=== PATIENT | male | born 1995 | race Caucasian/White ===

== ENCOUNTER 2016-06-26 21:30 | Emergency (ER) | payer OTHER ==
[~2016-06-26] VITALS: Ht 185.4 cm; Wt 81.1 kg
[~2016-06-26 21:30] MED LIST: AMOX TR-K CLV1 EAC4; BACTRIM,SEPT1 TABLET PO; KEFLEX500 MG PO; MOTRIN800 MG PO; NOHOMEMEDS; PHENERGAN25 MG PR; PREDNISONE20 MG PO; PROMETHAZINE HC25 M1 PO; ULTRAM50 MG PO; VENTOLIN HFA18 GM IH; ZITHROMAX Z-PA250 MG PO
[2016-06-26 21:58] LABS: HEMATOCRIT 40.6 % (38.0-50.0); MCH 31.5 PG (29.0-34.0); MCHC 34.7 G/DL (30.0-36.0); MCV 90.6 FL (86-99); MEAN PLAT.VOLUME 9.8 uM^3 (9.0-12.4); PLATELET COUNT 291 K/uL (156-360); RBC DIS.WIDTH-SD 39.1 % (39-53); RED BLOOD COUNT 4.48 M/uL (4.00-5.50); WHITE BLOOD COUNT 5.9 K/uL (4.1-10.2)
[2016-06-26 22:08] LABS: CHLORIDE 103 mEq/L (99-109); POTASSIUM 3.4 mEq/L (3.7-5.4); SODIUM 141 mEq/L (136-147)
[2016-06-26 22:10] LABS: GLUCOSE 103 mg/dL (70-99)
[2016-06-26 22:11] LABS: ADD MIUA? NO; BILIRUBIN SMALL; BLOOD NEGATIVE; COLOR DK YELLOW ((YELLOW)); GLUCOSE (STRIP) NEGATIVE; KETONES NEGATIVE; LEUKOCYTES NEGATIVE; NITRITE NEGATIVE; PH, URINE 6.5 (5-8); PROTEIN (STRIP) 30; UCUL ADDED? NO; UROBILINOGEN 0.2 MG/DL (0.2-1.0)
[2016-06-26 22:11] LABS: ANION GAP 13 MEQ/L (2-14)
[2016-06-26 22:13] LABS: GFR ESTIMATE (CALCULATED) > 59 mL/min/; SERUM ETHYL ALCOHOL < 10 mg/dL
[2016-06-26 22:15] LABS: UREA NITROGEN (BUN) 10 mg/dL (9-23)
[2016-06-26 22:17] LABS: SALICYLATE < 5.0 MG/DL (15-30)
[2016-06-26 22:23] LABS: AMPHETAMINE NEGATIVE (500 ng/mL); BARBITURATES NEGATIVE (200 ng/mL); BENZODIAZEPINES NEGATIVE (150 ng/mL); COCAINE PRESUMPTIVE POSITIVE (150 ng/mL); METHADONE NEGATIVE (200 ng/mL); METHAMPHETAMINE NEGATIVE (500 ng/mL); OPIATES (MORPHINE) PRESUMPTIVE POSITIVE (100 ng/mL); OXYCODONE NEGATIVE (100 ng/mL); PHENCYCLIDINE NEGATIVE (25 ng/mL); THC CANNABINOIDS PRESUMPTIVE POSITIVE (50 ng/mL); TRICYCLIC ANTIDEPRESSANTS NEGATIVE (300 ng/mL)
[2016-06-26 22:24] LABS: ADD MEDTOX COMMENT Y; INTERNAL CONTROLS VALID? YES; PROPOXYPHENE NEGATIVE (300 ng/mL)
[2016-06-27 00:48] VITALS: BP 137/74
== END 2016-06-27 01:03 | disposition home or self-care (01) ==
LOC: EME 21:30
DX: F19.10 Other psychoactive substance abuse, uncomplicated (principal); T50.991A Poisoning by other drugs, medicaments and biological substances, accidental (unintentional), initial encounter; R06.02 Shortness of breath; R11.2 Nausea with vomiting, unspecified; M79.602 Pain in left arm; F17.200 Nicotine dependence, unspecified, uncomplicated
CPT/HCPCS: 80048; 81003; 84999; 85027; 93005; 93971; 99281; 99284; G0480; J2060; J7030

== ENCOUNTER 2016-10-10 20:12 | Emergency (ER) | payer OTHER ==
[~2016-10-10] VITALS: Ht 185.4 cm; Wt 75.7 kg
[2016-10-10] MEDS ORDERED: CLEOCIN300 MG PO (21:15)
[2016-10-10] MEDS ORDERED: MOTRIN800 MG PO (21:15)
[2016-10-10 21:38] VITALS: BP 126/71
== END 2016-10-10 21:39 | disposition home or self-care (01) ==
LOC: EME 20:12
DX: L02.414 Cutaneous abscess of left upper limb (principal); L03.114 Cellulitis of left upper limb; F11.10 Opioid abuse, uncomplicated; F17.200 Nicotine dependence, unspecified, uncomplicated
CPT/HCPCS: 99281; 99284

== ENCOUNTER 2016-10-19 19:10 | Emergency (ER) | payer OTHER ==
[~2016-10-19] VITALS: Ht 185.4 cm; Wt 74.4 kg
[~2016-10-19 19:10] MED LIST changes: +CLEOCIN300 MG PO
[2016-10-19 20:42] LABS: AMPHETAMINE NEGATIVE (500 ng/mL); BARBITURATES NEGATIVE (200 ng/mL); BENZODIAZEPINES PRESUMPTIVE POSITIVE (150 ng/mL); COCAINE PRESUMPTIVE POSITIVE (150 ng/mL); INTERNAL CONTROLS VALID? YES; METHADONE NEGATIVE (200 ng/mL); METHAMPHETAMINE NEGATIVE (500 ng/mL); OPIATES (MORPHINE) NEGATIVE (100 ng/mL); OXYCODONE NEGATIVE (100 ng/mL); PHENCYCLIDINE NEGATIVE (25 ng/mL); PROPOXYPHENE NEGATIVE (300 ng/mL); THC CANNABINOIDS NEGATIVE (50 ng/mL); TRICYCLIC ANTIDEPRESSANTS NEGATIVE (300 ng/mL)
[2016-10-19 20:43] LABS: ADD MEDTOX COMMENT Y
[2016-10-19 21:01] LABS: HEMATOCRIT 45.3 % (38.0-50.0); MCH 31.5 PG (29.0-34.0); MCHC 33.3 G/DL (30.0-36.0); MCV 94.4 FL (86-99); MEAN PLAT.VOLUME 10.7 uM^3 (9.0-12.4); PLATELET COUNT 292 K/uL (156-360); RBC DIS.WIDTH-CV 12.4 % (11.8-14.6); RBC DIS.WIDTH-SD 43.5 % (39-53); WHITE BLOOD COUNT 7.8 K/uL (4.1-10.2)
[2016-10-19 21:13] LABS: CHLORIDE 108 mEq/L (99-109); POTASSIUM 4.6 mEq/L (3.7-5.4); SODIUM 142 mEq/L (136-147)
[2016-10-19 21:14] LABS: GLUCOSE 110 mg/dL (70-99)
[2016-10-19 21:16] LABS: ANION GAP 11 MEQ/L (2-14)
[2016-10-19 21:18] LABS: GFR ESTIMATE (CALCULATED) > 59 mL/min/; SERUM ETHYL ALCOHOL < 10 mg/dL
[2016-10-19 21:19] LABS: UREA NITROGEN (BUN) 11 mg/dL (9-23)
[2016-10-19 21:23] LABS: BENZODIAZEPINES QUANT VALUE 0 NG/ML
[2016-10-19 21:26] LABS: BENZODIAZEPINES, URINE SCREEN Negative (200 ng/mL)
[2016-10-19] MEDS ORDERED: ZUBSOLV (23:43)
[2016-10-20] MEDS ORDERED: ZUBSOLV 5.7-1.1 EACH SL (11:18)
[2016-10-20] MEDS ORDERED: IBUPROFEN800 MG PO (11:19)
[2016-10-20] MEDS ORDERED: CLEOCIN300 MG PO (11:19)
[2016-10-20 20:14] VITALS: BP 125/61
== END 2016-10-20 20:21 | disposition home or self-care (01) ==
LOC: EME 19:10 → EDOF 10-20 11:00 → EME 10-20 11:00 → EDOF 10-20 20:38
DX: F32.9 Major depressive disorder, single episode, unspecified (principal); F11.23 Opioid dependence with withdrawal; F13.20 Sedative, hypnotic or anxiolytic dependence, uncomplicated; F17.200 Nicotine dependence, unspecified, uncomplicated
CPT/HCPCS: 80048; 83605; 84999; 85027; 87040; 90839; 99281; 99285; G0480